=== PATIENT | female | born 1985 | race Caucasian/White ===

== ENCOUNTER 2021-10-20 22:02 | Inpatient (IN) | payer OTHER ==
[2021-10-20] MEDS ORDERED: ACETAMINOPHEN 1000 MG/100 ML VIAL IVPB ONE (22:40)
[2021-10-20] MEDS ORDERED: FAMOTIDINE 20 MG/50 ML IVPB 20 MG/50 ML MG IVPB ONE ×2 (22:40→23:25)
[2021-10-20] MEDS ORDERED: METOCLOPRAMIDE HCL INJECTION 10 MG/2 ML VIAL IVPB ONE (22:40)
[2021-10-20] MEDS ORDERED: SODIUM CHLORIDE 1,000 ML IV STA (22:40)
[2021-10-20] MEDS ORDERED: ACETAMINOPHEN INJECTION 100 ML IVPB ONE (23:24)
[2021-10-20] MEDS ORDERED: METOCLOPRAMIDE HCL INJECTION 10 MG/2 ML VIAL ONE (23:24)
[2021-10-21 00:21] LABS: BASO % 0.9 % (0-2.0); EOS % 0.8 % (0-4.5); HEMATOCRIT 28.6 % (32.4-45.2); HEMOGLOBIN 8.5 GM/dL (10.7-15.3); LYMPH % 13.4 % (8-40); MCHC 29.8 g/dl (32.0-36.0); MEAN CELL VOLUME 60.1 fl (80-96); MEAN PLT VOLUME 9.4 fl (7.5-11.1); MONO % 7.7 % (3.8-10.2); NEUT % 77.2 % (42.8-82.8); PLATELET COUNT 223 10^3/uL (134-434); RBC 4.76 M/mm3 (3.60-5.2); RDW 21.4 % (11.6-15.6); WHITE BLOOD COUNT 7.2 K/mm3 (4.0-10.0)
[2021-10-21 00:37] LABS: CHLORIDE 107 mmol/L (98-107); SODIUM 139 mmol/L (136-145)
[2021-10-21 00:39] LABS: ALBUMIN 3.4 g/dl (3.4-5.0); CALCIUM 8.7 mg/dL (8.5-10.1); LIPASE 330 U/L (73-393)
[2021-10-21 00:40] LABS: ANION GAP 8 MMOL/L (8-16); BLOOD UREA NITROGEN 13.2 mg/dL (7-18); CO2 25 mmol/L (21-32); GLUCOSE,RANDOM 112 mg/dL (74-106)
[2021-10-21 00:42] LABS: CREATININE 0.6 mg/dL (0.55-1.3); SGOT/AST 305 U/L (15-37); SGPT/ALT 223 U/L (13-61)
[2021-10-21 00:44] LABS: BILIRUBIN,TOTAL 0.9 mg/dL (0.2-1); TOT PROT 7.8 g/dl (6.4-8.2)
[2021-10-21 00:45] LABS: ALK PHOS 131 U/L (45-117)
[2021-10-21] MEDS ORDERED: LACTATED RINGERS SOLUTION 1,000 ML/1,000 ML INFUS.BAG IV SCH (00:45)
[2021-10-21 00:52] LABS: MCH 17.9 pg (25.7-33.7)
[2021-10-21] MEDS ORDERED: PIPERACILLIN/TAZOB 3.375 GM 3.375 GM in DEXTROSE 5%-WATER - 50 ML IVPB ONE (01:07)
[2021-10-21] MEDS ORDERED: PIPERACILLIN/TAZOB 3.375 GM 3.375 GM/50 ML BAG IVPB ONE (01:18)
[2021-10-21 01:53] LABS: ANISOCYTOSIS 2+
[2021-10-21] MEDS ORDERED: METOCLOPRAMIDE HCL INJECTION 10 MG/2 ML VIAL IVPUSH PRN (02:38)
[2021-10-21] MEDS ORDERED: ACETAMINOPHEN 1000 MG/100 ML VIAL IVPB PRN (02:39)
[2021-10-21] MEDS: DEXTROSE 5%-NORMAL SALINE 1,000 ML IV SCH (04:00)
[2021-10-21 04:39] VITALS: BMI 36.3
[2021-10-21] MEDS ORDERED: DEXTROSE 5%-WATER 100 ML IVPB ONE (09:06)
[2021-10-21] MEDS ORDERED: PIPERACILLIN/TAZOBACTAM 4.5 GM VIAL IVPB ONE (09:06)
[2021-10-21] MEDS ORDERED: PIPERACILLIN/TAZOB 4.5 GM 4.5 GM in DEXTROSE 5%-WATER 100 ML IVPB SCH (10:00)
[2021-10-21 10:16] LABS: HCG,QUALITATIVE URINE Negative
[2021-10-21 10:17] LABS: EPI CELLS 21 /uL (0-25.1); HYALINE CASTS 1 /uL (0-3.1); PH,URINE 6.5 (5.0-8.0); URINE APPEARANCE CLEAR; URINE BACTERIA 67 /uL (0-1359); URINE BILIRUBIN NEGATIVE (NEGATIVE); URINE COLOR YELLOW; URINE GLUCOSE (UA) NEGATIVE (NEGATIVE); URINE KETONE NEGATIVE (NEGATIVE); URINE LEUK ESTERASE 1+ (NEGATIVE); URINE NITRITE NEGATIVE (NEGATIVE); URINE PROTEIN NEGATIVE (NEGATIVE); URINE RBC 6 /uL (0-23.9); URINE WBC 80 /uL (0-25.8)
[2021-10-21 10:45] LABS: ALBUMIN 2.8 g/dl (3.4-5.0); BLOOD UREA NITROGEN 9.4 mg/dL (7-18)
[2021-10-21 10:48] LABS: CREATININE 0.5 mg/dL (0.55-1.3)
[2021-10-21 10:49] LABS: BILIRUBIN,TOTAL 1.4 mg/dL (0.2-1)
[2021-10-21 10:50] LABS: HEMATOCRIT 26.6 % (32.4-45.2); HEMOGLOBIN 7.9 GM/dL (10.7-15.3); MCHC 29.5 g/dl (32.0-36.0); MEAN CELL VOLUME 59.9 fl (80-96); PLATELET COUNT 202 10^3/uL (134-434); RBC 4.45 M/mm3 (3.60-5.2); RDW 21.5 % (11.6-15.6); TOT PROT 6.5 g/dl (6.4-8.2); WHITE BLOOD COUNT 5.7 K/mm3 (4.0-10.0)
[2021-10-21 10:51] LABS: INR 1.13 (0.83-1.09); PROTHROMBIN TIME (PATIENT) 12.7 SEC (9.7-13.0)
[2021-10-21 10:54] LABS: ACTIVATED PTT 29.3 SECONDS (25.2-36.5)
[2021-10-21 10:56] LABS: MCH 17.7 pg (25.7-33.7)
[2021-10-21] MEDS: HEPARIN NA (PORCINE) 5,000 UNITS/ML 1ML VIAL SQ SCH (21:24)
[2021-10-22] MEDS: HEPARIN NA (PORCINE) 5,000 UNITS/ML 1ML VIAL SQ SCH (05:30)
[2021-10-22] MEDS: DEXTROSE 5%-NORMAL SALINE 1,000 ML IV SCH (05:30)
[2021-10-22] MEDS ORDERED: cefTRIAXone SODIUM 1 GM VIAL ONE (08:38)
[2021-10-22] MEDS ORDERED: DEXTROSE 5%-WATER - 50 ML IVPB ONE (08:38)
[2021-10-22 09:59] LABS: HEMATOCRIT 24.8 % (32.4-45.2); HEMOGLOBIN 7.4 GM/dL (10.7-15.3); MCHC 29.8 g/dl (32.0-36.0); MEAN CELL VOLUME 60.1 fl (80-96); MEAN PLT VOLUME 9.7 fl (7.5-11.1); PLATELET COUNT 204 10^3/uL (134-434); RBC 4.12 M/mm3 (3.60-5.2); RDW 21.6 % (11.6-15.6); WHITE BLOOD COUNT 4.2 K/mm3 (4.0-10.0)
[2021-10-22] MEDS ORDERED: PIPERACILLIN/TAZOB 4.5 GM 4.5 GM in DEXTROSE 5%-WATER 100 ML IVPB SCH (10:00)
[2021-10-22 10:11] LABS: INR 1.14 (0.83-1.09); PROTHROMBIN TIME (PATIENT) 13.3 SEC (9.7-13.0)
[2021-10-22 10:12] LABS: MCH 17.9 pg (25.7-33.7)
[2021-10-22 10:13] LABS: ACTIVATED PTT 32.8 SECONDS (25.2-36.5)
[2021-10-22] MEDS: CEFTRIAXONE 1 GM in DEXTROSE 5%-WATER - 50 ML IVPB SCH (10:54)
[2021-10-22 11:06] LABS: ALBUMIN 2.7 g/dl (3.4-5.0); CALCIUM 7.8 mg/dL (8.5-10.1)
[2021-10-22 11:07] LABS: BLOOD UREA NITROGEN 6.7 mg/dL (7-18)
[2021-10-22 11:09] LABS: BILIRUBIN,DIRECT 0.1 mg/dL (0.0-0.2); CREATININE 0.4 mg/dL (0.55-1.3)
[2021-10-22 11:11] LABS: BILIRUBIN,TOTAL 0.4 mg/dL (0.2-1); TOT PROT 6.2 g/dl (6.4-8.2)
[2021-10-23] MEDS: DEXTROSE 5%-NORMAL SALINE 1,000 ML IV SCH ×3 (01:51→21:03)
[2021-10-23] MEDS ORDERED: DEXTROSE 5%-WATER - 50 ML IVPB ONE (08:55)
[2021-10-23] MEDS ORDERED: cefTRIAXone SODIUM 1 GM VIAL ONE (08:55)
[2021-10-23] MEDS: CEFTRIAXONE 1 GM in DEXTROSE 5%-WATER - 50 ML IVPB SCH (09:02)
[2021-10-23 12:16] LABS: BASO % 0.8 % (0-2.0); EOS % 1.8 % (0-4.5); HEMATOCRIT 29.7 % (32.4-45.2); HEMOGLOBIN 8.9 GM/dL (10.7-15.3); LYMPH % 24.8 % (8-40); MEAN CELL VOLUME 61.6 fl (80-96); MEAN PLT VOLUME 8.6 fl (7.5-11.1); MONO % 6.8 % (3.8-10.2); NEUT % 65.8 % (42.8-82.8); PLATELET COUNT 206 10^3/uL (134-434); RBC 4.82 M/mm3 (3.60-5.2); RDW 23.2 % (11.6-15.6); WHITE BLOOD COUNT 5.6 K/mm3 (4.0-10.0)
[2021-10-23] MEDS ORDERED: BUPIVACAINE HCL/PF 0.5% (5MG/ML) 10 ML VIAL ONE (12:20)
[2021-10-23 12:27] LABS: MCH 18.5 pg (25.7-33.7)
[2021-10-23 12:28] LABS: CALCIUM 8.6 mg/dL (8.5-10.1)
[2021-10-23 12:29] LABS: BLOOD UREA NITROGEN 5.2 mg/dL (7-18)
[2021-10-23 12:32] LABS: CREATININE 0.5 mg/dL (0.55-1.3); PHOSPHOROUS 3.5 mg/dL (2.5-4.9)
[2021-10-23 12:34] LABS: BILIRUBIN,TOTAL 0.4 mg/dL (0.2-1); TOT PROT 7.3 g/dl (6.4-8.2)
[2021-10-23 12:36] LABS: ALBUMIN 3.3 g/dl (3.4-5.0)
[2021-10-24] MEDS ORDERED: BUPIVACAINE HCL/PF 0.5% (5MG/ML) 10 ML VIAL ONE (07:49)
[2021-10-24] MEDS ORDERED: ROCURONIUM BROMIDE 50 MG/5 ML SYRINGE ONE (08:20)
[2021-10-24] MEDS ORDERED: SUCCINYLCHOLINE CHLORIDE 200 MG/10 ML SYRINGE ONE (08:21)
[2021-10-24] MEDS ORDERED: MIDAZOLAM HCL 2 MG/2 ML SINGLE DOSE VIAL ONE (08:21)
[2021-10-24] MEDS ORDERED: PROPOFOL 20 ML ONE ×3 (08:21)
[2021-10-24] MEDS ORDERED: cefTRIAXone SODIUM 1 GM VIAL ONE (08:51)
[2021-10-24] MEDS ORDERED: DEXTROSE 5%-WATER - 50 ML IVPB ONE (08:52)
[2021-10-24] MEDS ORDERED: FERRIC CARBOXYMALTOSE 750 MG in SODIUM CHLORIDE 250 ML IVPB ONE ×2 (09:00→10:30)
[2021-10-24 09:25] LABS: INR 1.08 (0.83-1.09); PROTHROMBIN TIME (PATIENT) 12.6 SEC (9.7-13.0)
[2021-10-24 09:28] LABS: ACTIVATED PTT 31.3 SECONDS (25.2-36.5)
[2021-10-24 09:44] LABS: CALCIUM 8.5 mg/dL (8.5-10.1)
[2021-10-24 09:45] LABS: ALBUMIN 3.3 g/dl (3.4-5.0); BLOOD UREA NITROGEN 6.6 mg/dL (7-18)
[2021-10-24 09:50] LABS: BILIRUBIN,TOTAL 0.5 mg/dL (0.2-1); CREATININE 0.5 mg/dL (0.55-1.3); TOT PROT 7.5 g/dl (6.4-8.2)
[2021-10-24] MEDS ORDERED: NEOSTIGMINE METHYLSULFATE 0.5 MG/ML - 10 ML MDV ONE (10:00)
[2021-10-24] MEDS ORDERED: BUPIVACAINE HCL/PF 0.5% (5MG/ML) 10 ML VIAL IJ ONE ×2 (10:01)
[2021-10-24] MEDS ORDERED: oxyCODONE HCL 5 MG TABLET PO PRN (10:22)
[2021-10-24] MEDS ORDERED: METOCLOPRAMIDE HCL INJECTION 10 MG/2 ML VIAL IVPUSH PRN (10:30)
[2021-10-24] MEDS ORDERED: ONDANSETRON 4 MG/2 ML VIAL IVPUSH PRN (10:34)
[2021-10-24] MEDS ORDERED: LACTATED RINGERS SOLUTION 1,000 ML IV SCH (10:45)
[2021-10-24] MEDS ORDERED: cefTRIAXone SODIUM 1 GM VIAL IVPB ONE (11:22)
[2021-10-24] MEDS: DEXTROSE 5%-NORMAL SALINE 1,000 ML IV SCH ×3 (12:05→19:48)
[2021-10-24] MEDS: KETOROLAC TROMETHAMINE 15 MG/ML VIAL IVPUSH PRN (12:45)
[2021-10-24 14:18] LABS: HEMATOCRIT 29.3 % (32.4-45.2); MCHC 30.9 g/dl (32.0-36.0); MEAN CELL VOLUME 62.1 fl (80-96); MEAN PLT VOLUME 9.4 fl (7.5-11.1); PLATELET COUNT 195 10^3/uL (134-434); RBC 4.71 M/mm3 (3.60-5.2); RDW 24.2 % (11.6-15.6); WHITE BLOOD COUNT 10.2 K/mm3 (4.0-10.0)
[2021-10-24 14:22] LABS: MCH 19.2 pg (25.7-33.7)
[2021-10-24 15:05] LABS: ANISOCYTOSIS 0; MACROCYTOSIS 0; PLATELET ESTIMATE NORMAL
[2021-10-24] MEDS ORDERED: morphine SULFATE 4 MG/ML VIAL IVPUSH ONE (15:11)
[2021-10-24] MEDS ORDERED: ACETAMINOPHEN 325 MG TABLET (FP) PO PRN (16:00)
[2021-10-24] MEDS: CEFTRIAXONE 1 GM in DEXTROSE 5%-WATER - 50 ML IVPB SCH (19:48)
[2021-10-25 00:11] LABS: VON WILLEBRAND ANTIGEN 143 % (50-200)
[2021-10-25] MEDS: DEXTROSE 5%-NORMAL SALINE 1,000 ML IV SCH ×2 (03:40→10:53)
[2021-10-25 09:46] LABS: BASO % 0.6 % (0-2.0); EOS % 0.4 % (0-4.5); HEMATOCRIT 24.8 % (32.4-45.2); HEMOGLOBIN 7.7 GM/dL (10.7-15.3); LYMPH % 25.5 % (8-40); MCHC 30.8 g/dl (32.0-36.0); MEAN CELL VOLUME 62.2 fl (80-96); MONO % 7.7 % (3.8-10.2); NEUT % 65.8 % (42.8-82.8); PLATELET COUNT 186 10^3/uL (134-434); RBC 3.99 M/mm3 (3.60-5.2); RDW 23.9 % (11.6-15.6); WHITE BLOOD COUNT 7.5 K/mm3 (4.0-10.0)
[2021-10-25 09:50] LABS: MCH 19.2 pg (25.7-33.7)
[2021-10-25] MEDS ORDERED: CEFTRIAXONE 1 GM in DEXTROSE 5%-WATER - 50 ML IVPB SCH (10:00)
[2021-10-25 10:13] LABS: BLOOD UREA NITROGEN 5.1 mg/dL (7-18); CALCIUM 8.1 mg/dL (8.5-10.1)
[2021-10-25 10:15] LABS: PHOSPHOROUS 2.5 mg/dL (2.5-4.9)
[2021-10-25 10:16] LABS: CREATININE 0.4 mg/dL (0.55-1.3)
[2021-10-25 10:17] LABS: BILIRUBIN,TOTAL 0.3 mg/dL (0.2-1); TOT PROT 6.2 g/dl (6.4-8.2)
[2021-10-25] MEDS ORDERED: DEXTROSE 5%-WATER - 50 ML IVPB ONE (10:20)
[2021-10-25] MEDS ORDERED: cefTRIAXone SODIUM 1 GM VIAL ONE (10:20)
[2021-10-25 10:22] LABS: ALBUMIN 2.6 g/dl (3.4-5.0); MAGNESIUM 1.8 mg/dL (1.8-2.4)
[2021-10-25] MEDS ORDERED: POTASSIUM CHLORIDE TABS 20 MEQ TABLET.ER (FP) PO ONE (10:30)
[2021-10-25] MEDS: KETOROLAC TROMETHAMINE 15 MG/ML VIAL IVPUSH PRN (14:25)
[2021-10-25 15:04] VITALS: BP 132/74; PULSE 56; TEMP 98.4
[2021-10-25] MEDS ORDERED: FAMOTIDINE 20 MG/50 ML IVPB 20 MG/50 ML MG IVPB ONE (16:58)
[2021-10-25] MEDS ORDERED: SIMETHICONE 80 MG TAB.CHEW (FP) PO ONE (16:58)
== END 2021-10-25 21:57 | disposition home or self-care (01) | DRG 263 ==
LOC: JER 22:02 → JERBED 10-21 00:36 → J4S 10-21 02:36 → J6S 10-23 19:32
PROVIDERS: ATTEND Internal Medicine
PROC: 30233N1 Transfusion of Nonautologous Red Blood Cells into Peripheral Vein, Percutaneous Approach (ICD-10-PCS; 2021-10-23)
PROC: 0FT44ZZ Resection of Gallbladder, Percutaneous Endoscopic Approach (ICD-10-PCS; principal; 2021-10-24 08:30)
DX: K80.12 Calculus of gallbladder with acute and chronic cholecystitis without obstruction (principal); D50.9 Iron deficiency anemia, unspecified; E66.9 Obesity, unspecified; R74.01 Elevation of levels of liver transaminase levels; Z68.36 Body mass index [BMI] 36.0-36.9, adult
CPT/HCPCS: 36415; 36430; 74181-TC; 76705-TC; 76830-TC; 80053; 81003; 82248; 82550; 82728; 83540; 83550; 83690; 83735; 84100; 84443; 84484; 84703; 85025; 85027; 85045; 85240; 85246; 85250; 85384; 85610; 85730; 86705; 86850; 86900; 86901; 86922; 87040; 87086; 87340; 87517; 87522; 88304-TC; 93005; 93010; 94760; 97116-GP; 97162-GP; 99285-25; C9803; J0131; J1439; J1644; P9058; U0003; U0005